=== PATIENT | male | born 1965 | race Caucasian/White ===

== ENCOUNTER 2023-06-18 07:27 | Observation (INO) ==
[2023-06-18 07:47] LABS: ABS Eosinophils 0.3 10^3/uL (0.0-0.5); ABS Lymphocytes 3.5 10^3/uL (1.0-4.8); ABS Monocytes 0.8 10^3/uL (0.0-1.1); ABS Neutrophils 4.6 10^3/uL (1.5-7.6); ABS Nucleated RBC 0.02 10^3/ul; Eosinophil % 2.8 %; Hematocrit 41.8 % (38-53); Hemoglobin 14.5 g/dL (13.2-16.3); Lymphocyte % 38.2 %; Mean Corpuscular Hemoglobin 29.9 pg (27-33); Mean Corpuscular Hgb Conc 34.7 g/dL (31-36); Mean Corpuscular Volume 86.1 fL (80-97); Mean Platelet Volume 8.8 fL (7.5-11.2); Nucleated Red Blood Cells % 0.2 %/100WBC (0.0-0.8); Platelet Count 239 10^3/uL (150-450); Red Blood Count 4.85 10^6/uL (4.06-5.63); Red Cell Distribution Width 12.3 % (12-17); White Blood Count 9.2 10^3/uL (3.6-10.2)
[2023-06-18 08:06] LABS: Albumin/Globulin Ratio 1.3 (1-3); Calcium 9.3 mg/dL (8.6-10.3); Creatinine, Serum 0.83 mg/dL (0.67-1.17); Globulin 3.2 g/dL (2-4); Potassium 3.9 mmol/L (3.5-5.0); Total Bilirubin 0.6 mg/dL (0.2-1.0); Total Protein 7.2 g/dL (6.4-8.9); eGFR CKD-EPI 102.1 (>60)
[2023-06-18 08:09] LABS: INR 1.06 (0.83-1.13)
[2023-06-18] MEDS ORDERED: Iohexol 350 (CONTRAST) 500 ML MDV IV ONE (08:59)
[2023-06-18 09:23] LABS: High Sensitivity Troponin 1 Hr 11 pg/mL (<20)
[2023-06-18 11:04] LABS: Rapid COVID-19 Molecular Detected (Undetected)
[2023-06-18 11:13] LABS: Influenza A Molecular Negative (Negative); Influenza B Molecular Negative (Negative)
[2023-06-18] MEDS: NF:ICOSAPENT ETHYL 1 GM CAPSULE (NF) PO SCH (20:48)
[2023-06-19 06:41] LABS: ABS Eosinophils 0.2 10^3/uL (0.0-0.5); ABS Lymphocytes 2.6 10^3/uL (1.0-4.8); ABS Monocytes 1.1 10^3/uL (0.0-1.1); ABS Neutrophils 4.7 10^3/uL (1.5-7.6); Eosinophil % 2.1 %; Hematocrit 40.6 % (38-53); Lymphocyte % 30.4 %; Mean Corpuscular Hemoglobin 29.7 pg (27-33); Mean Corpuscular Hgb Conc 34.6 g/dL (31-36); Mean Corpuscular Volume 85.8 fL (80-97); Platelet Count 218 10^3/uL (150-450); Red Blood Count 4.73 10^6/uL (4.06-5.63); Red Cell Distribution Width 12.3 % (12-17); White Blood Count 8.6 10^3/uL (3.6-10.2)
[2023-06-19 06:58] LABS: Creatinine, Serum 0.79 mg/dL (0.67-1.17); Magnesium 1.9 mg/dL (1.9-2.7); Potassium 4.1 mmol/L (3.5-5.0); eGFR CKD-EPI 103.6 (>60)
[2023-06-19] MEDS ORDERED: Aspirin EC 81 mg TAB.EC (enteric coated) PO SCH (09:00)
[2023-06-19] MEDS ORDERED: CMCS:Epleronone 25 mg TAB (NF) PO SCH (09:00)
[2023-06-19] MEDS ORDERED: Sulfur Hexaflouride MICROSPHR 25 MG VIAL ONE (09:01)
[2023-06-19 09:42] VITALS: BP 114/66
[2023-06-19] MEDS: NF:ICOSAPENT ETHYL 1 GM CAPSULE (NF) PO SCH (09:44)
== END 2023-06-19 13:30 | disposition left against medical advice (07) ==
LOC: EDHOLD 07:27 → ED 07:27 → MEDTELE 13:47
PROVIDERS: ADMIT Student in an Organized Health Care Education/Training Program; ATTEND Student in an Organized Health Care Education/Training Program